=== PATIENT | female | born 1950 | race Caucasian/White ===

== ENCOUNTER 2018-03-04 08:35 | Emergency (ER) | payer MEDICARE ==
[2018-03-04 08:50] VITALS: BP 162/97
--- NOTE | 2018-03-04 10:05 | UC ---
Knee Pain HPI - HPI Summary HPI Summary: RIGHT KNEE PAIN. for 3 days. Patient has noticed right knee swelling and a clicking sound especially when she straightens her leg. She has a history of arthritis including in her back. Her knee hurts more when she bends over. Dr. Haro and is her physician. Pain is 9/10. Patient has diabetes and is on metformin. 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 She is on metformin. M.D. note: Vital signs are stable. Blood pressure is 162/97. Nurse's note: R knee pain for a couple of days, denies injury, hears a click every time she turns. - History of Current Complaint Chief Complaint: UCLowerExtremity Stated Complaint: KNEE PAIN Time Seen by Provider: 03/04/18 08:51 Hx Last Menstrual Period: MENOPAUSE Pain Intensity: 9 - Allergies/Home Medications Allergies/Adverse Reactions: Allergies Allergy/AdvReac Type Severity Reaction Status Date / Time No Known Allergies Allergy Verified 03/04/18 08:50 Home Medications: Home Medications Acetaminophen TAB* [Tylenol TAB*] 325 mg PO Q4H PRN 03/04/18 [History Confirmed 03/04/18] Metformin HCl [Fortamet] 1,000 mg PO BID 03/04/18 [History Confirmed 03/04/18] Omeprazole 40 mg PO DAILY 03/04/18 [History Confirmed 03/04/18] PMH/Surg Hx/FS Hx/Imm Hx Previously Healthy: Yes Endocrine History: Diabetes Other History Of: Negative For: Anticoagulant Therapy - Surgical History Surgical History: Yes Surgery Procedure, Year, and Place: BILATERAL BREAST LUMPS REMOVED(BENIGN). LSP SURGERY. WEIGHT LOSS SURGERY - PATIENT CAN'T REMEMBER WHAT EXACT SURGERY WAS CALLED. 2 C SECTIONS. RIGHT HAND CARPAL TUNNEL - Family History Known Family History: Positive: Cardiac Disease, Hypertension, Other - Colon cancer, hyperlipidemia - Social History Occupation: Employed Full-time - [employer] Lives: With Family Alcohol Use: None Substance Use Type: None Smoking Status (MU): Never Smoked Tobacco Have You Smoked in the Last Year: No - Immunization History Most Recent Influenza Vaccination: fall 2014 Most Recent Tetanus Shot: Uknown Most Recent Pneumonia Vaccination: unknown Review of Systems All Other Systems Reviewed And Are Negative: Yes Constitutional: Positive: Negative Skin: Positive: Negative Eyes: Positive: Negative ENT: Positive: Negative Respiratory: Positive: Negative Cardiovascular: Positive: Negative Gastrointestinal: Positive: Negative Genitourinary: Positive: Negative Motor: Positive: Negative Neurovascular: Positive: Negative Musculoskeletal: Positive: Arthralgia, Edema - right knee, Myalgia - right knee Neurological: Positive: Negative Psychological: Positive: Negative Is Patient Immunocompromised?: No Physical Exam Triage Information Reviewed: Yes Appearance: Well-Appearing - discomfort with ambulation Vital Signs: Initial Vital Signs Temp 98.9 F 03/04/18 08:43 Pulse 76 03/04/18 08:43 Resp 14 03/04/18 08:43 BP 162/97 03/04/18 08:43 Pulse Ox 99 03/04/18 08:43 Vital Signs Reviewed: Yes Eye Exam: Normal ENT Exam: Normal Dental Exam: Normal Neck exam: Normal Respiratory: Positive: Chest non-tender, Lungs clear, Normal breath sounds Cardiovascular: Positive: RRR, No Murmur, Pulses Normal Abdominal Exam: Normal Abdomen Description: Positive: Nontender, No Organomegaly, Soft Musculoskeletal: Positive: Edema @ - right knee, Other: - RIGHT KNEE EXAMINATION : EDEMA MEDIAL OVER PATELLA; X RAY POSITIVE FOR FLUID, NEGATIVE FOR FRACTURE; FULL EXTENSION WITH MILD PAIN OVER QUADRICEPTS; NO CLICKING HEARD; MILD TENDERNESS SUPERIOR ASPECT OF MEDIAL COLLATORAL LIGAMENT OF RIGHT KNEE.. Negative: ROM Intact, No Edema Neurological Exam: Normal Psychological Exam: Normal Skin Exam: Normal Knee Pain Course/Dx - Course Course Of Treatment: Patient has noticed right knee swelling and a clicking sound especially when she straightens her leg. She has a history of arthritis including in her back. Her knee hurts more when she bends over. Dr. Haro and is her physician. Pain is 9/10. Patient has diabetes and is on metformin. 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 She is on metformin. Examination of the knee shows swelling, no instability, tenderness over quadriceps and medial collatoral ligament. Patient will use a knee brace, elevate, heat, ice, restrict activity until pain free. Follow up as needed in 2-4 weeks. - Differential Dx/Diagnosis Differential Diagnosis/HQI/PQRI: Fracture (Closed), Patellofemoral Syndrome, Sprain, Strain, Tendonitis Provider Diagnosis: Right knee sprain Discharge - Sign-Out/Discharge Documenting (check all that apply): Patient Departure All imaging exams completed and their final reports reviewed: Yes - Discharge Plan Condition: Stable Disposition: HOME Prescriptions: Leg Brace [Knee Brace] 1 each MC ONCE #1 each MDD 1 Patient Education Materials: Knee Sprain (ED), Hinged Knee Brace (ED) Forms: *Work Release Referrals: Vidal Mohr MD [Primary Care Provider] - Additional Instructions: WE DISCUSSED: You have a right knee SPRAIN. You x ray shows arthritis and fluid above the knee. This probably comes from a sprain of your quadriceps tendon or the tissue on the inside of your knee. Use a knee brace; warm moist soaks in the morning. Ice for any pain from standing or walking. No work for 3 days. Elevate the leg when sitting. Use acetaminophen for pain. Use the renita wrap to push the fluid out of your knee area. This should get better but you may need the fluid drained if it gets bigger or hurts more. - Billing Disposition and Condition Condition: STABLE Disposition: Home
== END 2018-03-04 10:44 | disposition home or self-care (01) ==
LOC: UCEAST 08:35
DX: S83.91XA Sprain of unspecified site of right knee, initial encounter (principal); X58.XXXA Exposure to other specified factors, initial encounter; Y92.9 Unspecified place or not applicable; E11.9 Type 2 diabetes mellitus without complications; Z79.84 Long term (current) use of oral hypoglycemic drugs; Z98.84 Bariatric surgery status
CPT/HCPCS: 99212; G0463